=== PATIENT | female | born 1960 | race Caucasian/White ===

== ENCOUNTER 2017-10-13 02:25 | Emergency (ER) | payer OTHER ==
[2017-10-13 02:40] VITALS: BP 186/81; PULSE 93; TEMP 98; BMI 40.0
[2017-10-13] MEDS ORDERED: LORazepam 0.5 MG TABLET PO ONE (03:21)
--- NOTE | 2017-10-13 03:23 | PDOC ---
History of Present Illness - General History Source: Patient <Jonathon Hickey - Last Filed: 10/13/17 03:41> - General History Source: Patient, Old Records Exam Limitations: No Limitations - History of Present Illness Initial Comments: 10/13/17 03:33 The patient is a 56 year old female with a past medical history of hypertension , fibromyalgia, depression/anxiety who presents with chest tightness. The patient states that her dog recently and that she has feared letting her emotions go because she believe her blood pressure may rise secondary to her emotional distress. She took her prescribed medication for anxiety with minimal relief. On examination the patient was advised to let her emotions go. Patient notes that she feels better after crying. <Parag Epsitia - Last Filed: 10/13/17 03:42> - General Chief Complaint: Blood Pressure Problem Stated Complaint: BLOOD PRESSURE PROBLEM Time Seen by Provider: 10/13/17 03:21 Past History - Past Medical History Cardiac Disorders: Yes (CAD) HTN: Yes - Immunization History Immunization Up to Date: Yes - Suicide/Smoking/Psychosocial Hx Smoking History: Current every day smoker Have you smoked in the past 12 months: No Information on smoking cessation initiated: No Hx Alcohol Use: No Drug/Substance Use Hx: No Substance Use Type: None <Jonathon Hickey - Last Filed: 10/13/17 03:41> <Parag Espitia - Last Filed: 10/13/17 03:42> - Past Medical History Allergies/Adverse Reactions: Allergies Allergy/AdvReac Type Severity Reaction Status Date / Time No Known Allergies Allergy Verified 11/22/13 17:01 Home Medications: Ambulatory Orders Olmesartan/Hydrochlorothiazide [Benicar Hct 40-12.5MG Tab -] 1 tab PO DAILY 10/24 Citalopram Hydrobromide [Citalopram HBr] 10 mg PO DAILY 10/13/17 Review of Systems - Review of Systems Able to Perform ROS?: Yes Comments:: 10/13/17 03:34 CONSTITUTIONAL: Absent: fever, no chills, no fatigue EYES: Absent: visual changes ENT: Absent: ear pain, no sore throat CARDIOVASCULAR: (+) Chest tightness Absent: no palpitations RESPIRATORY: Absent: cough, no SOB GI: Absent: abdominal pain, no nausea, no vomiting, no constipation, no diarrhea GENITOURINARY: Absent: dysuria, no frequency, no hematuria MUSCULOSKELETAL: Absent: back pain, no arthralgia, no myalgia NEURO: (+) Anxiety SKIN: Absent: rash <Parag Espitia - Last Filed: 10/13/17 03:42> *Physical Exam - Vital Signs Last Vital Signs Temp Pulse Resp BP Pulse Ox 98 F 93 H 19 186/81 97 10/13/17 02:38 10/13/17 02:38 10/13/17 02:38 10/13/17 02:38 10/13/17 02:38 <Jonathon Hickey - Last Filed: 10/13/17 03:41> - Vital Signs Last Vital Signs Temp Pulse Resp BP Pulse Ox 98 F 93 H 19 186/81 97 10/13/17 02:38 10/13/17 02:38 10/13/17 02:38 10/13/17 02:38 10/13/17 02:38 - Physical Exam Comments: 10/13/17 03:34 GENERAL: Well-appearing, well-nourished. No apparent distress. HEENT: Normocephalic, atraumatic. PERRL, EOM intact. CARDIOVASCULAR: Normal S1, S2. Regular rate and rhythm. PULMONARY: Clear to auscultation bilaterally. ABDOMEN: Soft, non-distended, non-tender. EXTREMITIES: Normal ROM in all four extremities. No gross deformities. SKIN: Warm, dry. No rash NEUROLOGICAL: No focal neurological deficits. <Parag Espitia - Last Filed: 10/13/17 03:42> Heart Score/ECG Review - ECG Impressions Comment:: 10/13/17 03:42 Normal sinus rhythm Nonspecific ST abnormality Abnormal ECG <Parag Espitia - Last Filed: 10/13/17 03:42> ED Treatment Course - Medications Given in the ED: ED Medications Discontinued Medications Generic Name Dose Route Start Last Admin Trade Name Freq PRN Reason Stop Dose Admin Lorazepam 0.5 mg 10/13/17 03:21 10/13/17 03:29 Ativan - PO 10/13/17 03:22 0.5 mg ONCE ONE Administration <Parag Espitia - Last Filed: 10/13/17 03:42> Medical Decision Making - Medical Decision Making 10/13/17 03:23 Dr. Hickey: The scribe's documentation has been prepared under my direction and personally reviewed by me in its entirery. I confirm that the note above accurately reflects all work, treatment, procedures, and medical decision making performed by me. <Jonathon Hickey - Last Filed: 10/13/17 03:41> *DC/Admit/Observation/Transfer - Discharge Dispostion Admit: No <Jonathon Hickey - Last Filed: 10/13/17 03:41> - Attestations Scribe Attestion: 10/13/17 03:34 Documentation prepared by Parag Espitia, acting as medical radiation tech for Jonathon Hickey DO. <Parag Espitia - Last Filed: 10/13/17 03:42> Diagnosis at time of Disposition: Depression with anxiety Hypertension Qualifiers: Hypertension type: unspecified Qualified Code(s): I10 - Essential (primary) hypertension - Discharge Dispostion Disposition: HOME Condition at time of disposition: Stable - Referrals Referrals: Ayesha Bautista MD [Primary Care Provider] - - Patient Instructions Printed Discharge Instructions: DI for High Blood Pressure, DI for Anxiety -- Adult - Post Discharge Activity
[2017-10-13] MEDS ORDERED: LORazepam 0.5 MG TABLET ONE (03:25)
--- NOTE | 2017-10-13 11:26 | EKG ---
Test Reason : Blood Pressure : / mmHG Vent. Rate : 093 BPM Atrial Rate : 093 BPM P-R Int : 168 ms QRS Dur : 090 ms QT Int : 362 ms P-R-T Axes : 060 006 031 degrees QTc Int : 450 ms NORMAL SINUS RHYTHM NONSPECIFIC ST ABNORMALITY ABNORMAL ECG WHEN COMPARED WITH ECG OF 22-NOV-2013 17:20, NO SIGNIFICANT CHANGE WAS FOUND Confirmed by BYRON CAMPOS MD ([id number]) on 10/13/2017 11:26:34 AM Referred By: Confirmed By:BYRON CAMPOS MD
== END 2017-10-13 03:32 | disposition home or self-care (01) ==
LOC: JER 02:25
DX: I10 Essential (primary) hypertension (principal); F41.8 Other specified anxiety disorders; M79.7 Fibromyalgia
CPT/HCPCS: 93005; 93010; 99282-25

== ENCOUNTER 2021-02-08 12:38 | Inpatient (IN) | payer OTHER ==
[2021-02-08] MEDS ORDERED: ACETAMINOPHEN 500 MG TABLET (FP) PO ONE (13:23)
[2021-02-08] MEDS ORDERED: ACETAMINOPHEN 325 MG TABLET (FP) ONE (13:42)
[2021-02-08 14:00] LABS: BASO % 0.7 % (0-2.0); HEMATOCRIT 37.6 % (32.4-45.2); HEMOGLOBIN 13.1 GM/dL (10.7-15.3); LYMPH % 20.7 % (8-40); MCH 32.9 pg (25.7-33.7); MCHC 34.7 g/dl (32.0-36.0); MEAN CELL VOLUME 94.9 fl (80-96); MEAN PLT VOLUME 8.1 fl (7.5-11.1); MONO % 6.2 % (3.8-10.2); NEUT % 70.4 % (42.8-82.8); PLATELET COUNT 224 10^3/uL (134-434); RBC 3.96 M/mm3 (3.60-5.2); RDW 13.9 % (11.6-15.6); WHITE BLOOD COUNT 5.7 K/mm3 (4.0-10.0)
[2021-02-08 14:01] LABS: EPI CELLS 3 /uL (0-25.1); HYALINE CASTS 2 /uL (0-3.1); PH,URINE 6.5 (5.0-8.0); URINE APPEARANCE CLOUDY; URINE BACTERIA 1992 /uL (0-1359); URINE BILIRUBIN NEGATIVE (NEGATIVE); URINE COLOR YELLOW; URINE GLUCOSE (UA) NEGATIVE (NEGATIVE); URINE KETONE NEGATIVE (NEGATIVE); URINE LEUK ESTERASE 2+ (NEGATIVE); URINE NITRITE POSITIVE (NEGATIVE); URINE PROTEIN NEGATIVE (NEGATIVE); URINE RBC 21 /uL (0-23.9); URINE UROBILINOGEN 0.2 mg/dL (0.2-1.0); URINE WBC 144 /uL (0-25.8)
[2021-02-08 14:19] LABS: ALBUMIN 4.2 g/dl (3.4-5.0); BLOOD UREA NITROGEN 15.8 mg/dL (7-18); CALCIUM 10.8 mg/dL (8.5-10.1)
[2021-02-08 14:24] LABS: BILIRUBIN,TOTAL 0.5 mg/dL (0.2-1); CREATININE 0.5 mg/dL (0.55-1.3); TOT PROT 7.7 g/dl (6.4-8.2)
[2021-02-08] MEDS ORDERED: ASPIRIN 81 MG CHEWABLE TABLETS PO ONE (14:31)
[2021-02-08] MEDS ORDERED: ASPIRIN 81 MG CHEWABLE TABLETS ONE (14:33)
[2021-02-08] MEDS ORDERED: NITROGLYCERIN SUBLINGUAL 1/150 0.4 MG TAB SL ONE (14:42)
[2021-02-08] MEDS ORDERED: CEFTRIAXONE 1 GM in DEXTROSE 5%-WATER - 100 ML IVPB ONE (15:37)
[2021-02-08] MEDS ORDERED: ACETAMINOPHEN 325 MG TABLET (FP) PO PRN (15:48)
[2021-02-08] MEDS ORDERED: CEFTRIAXONE 1 GM/50 ML BAG ONE (15:56)
[2021-02-08] MEDS: ATORVASTATIN CA 20 MG TABLET (FP) PO SCH (22:10)
[2021-02-08] MEDS: HEPARIN NA (PORCINE) 5,000 UNITS/ML 1ML VIAL SQ SCH (22:10)
[2021-02-08 22:45] VITALS: BMI 39.6
[2021-02-09 08:15] LABS: HEMATOCRIT 37.5 % (32.4-45.2); HEMOGLOBIN 12.9 GM/dL (10.7-15.3); MCH 32.8 pg (25.7-33.7); MCHC 34.3 g/dl (32.0-36.0); MEAN CELL VOLUME 95.6 fl (80-96); MEAN PLT VOLUME 8.8 fl (7.5-11.1); PLATELET COUNT 213 10^3/uL (134-434); RBC 3.92 M/mm3 (3.60-5.2); RDW 13.8 % (11.6-15.6); WHITE BLOOD COUNT 5.4 K/mm3 (4.0-10.0)
[2021-02-09] MEDS ORDERED: PT OWN MED DRAWER 7, Y5N ONE ×2 (08:21→13:32)
[2021-02-09 08:29] LABS: ALBUMIN 3.6 g/dl (3.4-5.0); BLOOD UREA NITROGEN 15.4 mg/dL (7-18); CALCIUM 9.8 mg/dL (8.5-10.1)
[2021-02-09 08:32] LABS: CREATININE 0.5 mg/dL (0.55-1.3); MAGNESIUM 2.3 mg/dL (1.8-2.4)
[2021-02-09 08:34] LABS: BILIRUBIN,TOTAL 0.6 mg/dL (0.2-1); TOT PROT 8.1 g/dl (6.4-8.2)
[2021-02-09] MEDS: HEPARIN NA (PORCINE) 5,000 UNITS/ML 1ML VIAL SQ SCH ×2 (10:36→21:27)
[2021-02-09] MEDS: ASPIRIN COATED 81 MG TABLET.EC PO SCH (10:36)
[2021-02-09] MEDS ORDERED: CLOPIDOGREL BISULFATE 300 MG TABLET PO ONE (12:00)
[2021-02-09] MEDS: CITALOPRAM HYDROBROMIDE 10 MG TABLET PO SCH (13:36)
[2021-02-09] MEDS: ATORVASTATIN CA 20 MG TABLET (FP) PO SCH (21:28)
[2021-02-09] MEDS: METOPROLOL TARTRATE 25 MG TABLET (FP) PO SCH (21:28)
[2021-02-09] MEDS ORDERED: MAG HYDROX/AL HYDROX/SIMETH 30 ML UNIT-DOSE CUP PO ONE (23:37)
[2021-02-10 02:16] VITALS: BP 140/71
[2021-02-10 05:14] VITALS: PULSE 55; TEMP 98.5
[2021-02-10] MEDS ORDERED: PT OWN MED DRAWER 7, Y5N ONE (08:58)
[2021-02-10] MEDS: CITALOPRAM HYDROBROMIDE 10 MG TABLET PO SCH (09:31)
[2021-02-10] MEDS: HEPARIN NA (PORCINE) 5,000 UNITS/ML 1ML VIAL SQ SCH (09:31)
[2021-02-10] MEDS: METOPROLOL TARTRATE 25 MG TABLET (FP) PO SCH (09:32)
[2021-02-10] MEDS: ASPIRIN COATED 81 MG TABLET.EC PO SCH (09:38)
[2021-02-10] MEDS ORDERED: CLOPIDOGREL BISULFATE 75 MG TABLET (FP) PO SCH (10:00)
== END 2021-02-10 13:32 | disposition short-term general hospital (02) | DRG 282 ==
LOC: JER 12:38 → INTOOBSV 14:45 → JERBED 14:45 → J4W 21:33 → OBSVTOIN 02-09 13:06
PROVIDERS: ADMIT Family Medicine; ATTEND Family Medicine
DX: I21.4 Non-ST elevation (NSTEMI) myocardial infarction (principal); R07.9 Chest pain, unspecified; I10 Essential (primary) hypertension; F41.8 Other specified anxiety disorders
CPT/HCPCS: 36415; 71045-TC-FY; 80053; 80061; 81003; 82550; 82553; 83036; 83735; 84484; 85025; 85027; 87086; 87186; 93005; 93010; 99285-25; C9803; G0378; J1644; U0003; U0005

== ENCOUNTER 2021-10-31 16:22 | Emergency (ER) | payer OTHER ==
[2021-10-31 16:31] VITALS: BP 133/55; PULSE 100; TEMP 97.9; BMI 35.3
[2021-10-31] MEDS ORDERED: diazePAM 2 MG TABLET PO ONE (17:24)
[2021-10-31] MEDS ORDERED: LIDOCAINE 5% TOPICAL PATCH TP ONE (17:24)
[2021-10-31] MEDS ORDERED: KETOROLAC TROMETHAMINE 30 MG/1 ML VIAL IM ONE (17:24)
[2021-10-31] MEDS ORDERED: diazePAM 2 MG TABLET ONE (17:56)
[2021-10-31] MEDS ORDERED: LIDOCAINE 5% TOPICAL PATCH ONE (17:57)
[2021-10-31] MEDS ORDERED: KETOROLAC TROMETHAMINE 30 MG/1 ML VIAL ONE (17:57)
[2021-10-31 18:11] LABS: EPI CELLS 7 /uL (0-25.1); HYALINE CASTS 0 /uL (0-3.1); PH,URINE 5.5 (5.0-8.0); URINE APPEARANCE CLEAR; URINE BACTERIA 21 /uL (0-1359); URINE BILIRUBIN NEGATIVE (NEGATIVE); URINE COLOR YELLOW; URINE GLUCOSE (UA) NEGATIVE (NEGATIVE); URINE KETONE NEGATIVE (NEGATIVE); URINE LEUK ESTERASE TRACE (NEGATIVE); URINE NITRITE NEGATIVE (NEGATIVE); URINE PROTEIN NEGATIVE (NEGATIVE); URINE RBC 4 /uL (0-23.9); URINE UROBILINOGEN 0.2 mg/dL (0.2-1.0); URINE WBC 29 /uL (0-25.8)
[2021-10-31] MEDS ORDERED: LIDOCAINE PATCH REMOVAL MC SCH (22:00)
== END 2021-10-31 19:40 | disposition home or self-care (01) ==
LOC: JERFT 16:22
PROC: 3E0233Z Introduction of Anti-inflammatory into Muscle, Percutaneous Approach (ICD-10-PCS; principal; 2021-10-31)
DX: M54.41 Lumbago with sciatica, right side (principal)
CPT/HCPCS: 72100-TC-FY; 81003; 87086; 87186; 99284-25